=== PATIENT | female | born 1960 | race Two or more races ===

== ENCOUNTER 2018-11-11 11:08 | Inpatient (IN) | payer MEDICAID ==
[~2018-11-11] VITALS: Ht 160 cm; Wt 78.5 kg
[2018-11-11 11:56] LABS: HEMATOCRIT 36.5 % (36.0-48.0); HEMOGLOBIN 12.6 g/dL (12.0-16.0); MEAN CORPUSCULAR VOLUME 95.8 fL (81.0-99.0); PLATELET 250 x1000/uL (130-400); RED BLOOD CELL COUNT 3.81 mill/uL (4.2-5.4); RED CELL DISTRIBUTION WIDTH 13.3 % (11.6-14.6)
[2018-11-11 12:02] LABS: CHLORIDE 107 mEq/L (98-107)
[2018-11-11] MEDS ORDERED: ASPI-1158 MT (12:10)
[2018-11-11] MEDS ORDERED: CARV6.2548 MT (12:10)
[2018-11-11] MEDS ORDERED: LEVO112T7 MT (12:10)
[2018-11-11] MEDS ORDERED: CHOL200074 MT (12:10)
[2018-11-11] MEDS ORDERED: LIRA0.6P SQ (12:10)
[2018-11-11] MEDS ORDERED: NAPR-679 PO (12:10)
[2018-11-11] MEDS ORDERED: FISH1CAP65 MT (12:10)
[2018-11-11] MEDS ORDERED: SACU1TAB7 MT (12:10)
[2018-11-11] MEDS ORDERED: VENL-179 MT (12:10)
[2018-11-11] MEDS ORDERED: ATOR10TA69 PO (12:10)
[2018-11-11 12:22] LABS: PARTIAL THROMBOPLASTIN TIME 27.5 sec (23.4-31.0); PROTHROMBIN TIME 10.1 sec (9.6-11.0)
[2018-11-11] MEDS ORDERED: LIDOCAINE HCL 1% 20ML VIAL (Pyxis) INJ ONE (13:13)
[2018-11-11] MEDS ORDERED: IOHEXOL-300 100 ML BOTTLE ONE (13:13)
[2018-11-11] MEDS ORDERED: MIDAZOLAM HCL 2 MG/2 ML VIAL ONE (13:14)
[2018-11-11] MEDS ORDERED: GENTAMICIN SULF 40MG/ML 2ML VIAL ONE (13:14)
[2018-11-11] MEDS ORDERED: FENTANYL CITRATE/PF 50MCG/ML 2ML VIAL ONE (13:14)
[2018-11-11] MEDS ORDERED: GENTAMICIN/NS IRRIGATION 500 ML IR ONE (13:15)
[2018-11-11] MEDS ORDERED: SODIUM CHLORIDE 0.9% 10ML VIAL ONE (13:28)
[2018-11-11] MEDS ORDERED: CEFAZOLIN SODIUM 1000MG/VIAL ONE (13:28)
[2018-11-11] MEDS ORDERED: PROPOFOL 200MG/20ML VIAL IV ONE (13:40)
[2018-11-11] MEDS ORDERED: HYDROCODONE/ACETAMINOPHEN 5/325MG TABLET PO PRN (15:45)
[2018-11-11 18:33] VITALS: BP 112/84
[2018-11-11] MEDS ORDERED: HYDROMORPHONE HCL/PF 2MG/ML CPJ IV PRN (19:00)
[2018-11-11 20:00] VITALS: BP 115/60
[2018-11-11] MEDS ORDERED: ATORVASTATIN CALCIUM 10MG TABLET PO SCH (21:00)
[2018-11-11] MEDS: VENLAFAXINE HCL 37.5MG SR CAPSULE 24HR PO SCH (21:52)
[2018-11-11] MEDS: CARVEDILOL 6.25 MG TABLET PO SCH (21:57)
[2018-11-11 22:00] VITALS: BP 112/69
[2018-11-11] MEDS: CEFAZOLIN 1000MG PREMIX 50 ML IV SCH (22:06)
[2018-11-11 23:04] LABS: PARTIAL THROMBOPLASTIN TIME 27.5 sec (23.4-31.0); PROTHROMBIN TIME 10.5 sec (9.6-11.0)
[2018-11-12] VITALS (7 sets, daily range): BP systolic 94–112; BP diastolic 58–65
[2018-11-12] MEDS: CEFAZOLIN 1000MG PREMIX 50 ML IV SCH (05:55)
[2018-11-12 06:30] LABS: CHLORIDE 107 mEq/L (98-107)
[2018-11-12 06:36] LABS: BASOPHILS % 0.2 % (0.0-2.0); EOSINOPHILS % 1.7 % (0.0-5.0); HEMATOCRIT. 33.9 % (36.0-48.0); HEMOGLOBIN. 11.8 g/dL (12.0-16.0); LYMPHOCYTES % 30.2 % (20.0-50.0); MEAN CORPUSCULAR HEMOGLOBIN 33.3 pg (28.0-32.0); MEAN CORPUSCULAR VOLUME 95.5 fL (81.0-99.0); MEAN PLATELET VOLUME 8.9 fl (7.4-10.4); NEUTROPHILS % 58.9 % (40.0-76.0); PLATELET 207 x1000/uL (130-400); RED BLOOD CELL COUNT 3.55 mill/uL (4.2-5.4); RED CELL DISTRIBUTION WIDTH 13.2 % (11.6-14.6)
[2018-11-12] MEDS: VENLAFAXINE HCL 37.5MG SR CAPSULE 24HR PO SCH (08:21)
[2018-11-12] MEDS: CARVEDILOL 6.25 MG TABLET PO SCH (08:22)
[2018-11-12] MEDS ORDERED: LEVOTHYROXINE SODIUM 112MCG TABLET PO SCH (09:00)
[2018-11-12] MEDS ORDERED: ASPIRIN 81MG TABLET PO SCH (09:00)
[2018-11-12] MEDS ORDERED: NAPROXEN 375MG TABLET PO SCH (09:00)
== END 2018-11-12 13:37 | disposition home or self-care (01) | DRG 161 ==
LOC: CCL 11:08 → 3WST 11:09
PROVIDERS: ADMIT Internal Medicine Clinical Cardiac Electrophysiology; ATTEND Internal Medicine Clinical Cardiac Electrophysiology
PROC: 0JH608Z Insertion of Defibrillator Generator into Chest Subcutaneous Tissue and Fascia, Open Approach (ICD-10-PCS; principal; 2018-11-11)
PROC: 02HK3KZ Insertion of Defibrillator Lead into Right Ventricle, Percutaneous Approach (ICD-10-PCS; 2018-11-11)
PROC: 4A023N6 Measurement of Cardiac Sampling and Pressure, Right Heart, Percutaneous Approach (ICD-10-PCS; 2018-11-11)
DX: I42.0 Dilated cardiomyopathy (principal); I11.0 Hypertensive heart disease with heart failure; I50.9 Heart failure, unspecified; E03.9 Hypothyroidism, unspecified; E11.9 Type 2 diabetes mellitus without complications; I43 Cardiomyopathy in diseases classified elsewhere; E78.00 Pure hypercholesterolemia, unspecified; Z79.84 Long term (current) use of oral hypoglycemic drugs; Z82.49 Family history of ischemic heart disease and other diseases of the circulatory system; Z79.899 Other long term (current) drug therapy
CPT/HCPCS: 33249; 36415; 71045; 75820; 80048; 85027; 93005; 93451; 93641; A4565; C1722; C1892; C1893; C1899; J0690; J1580; J1644; J2250; J2704; J3010; J3490; J7050; Q9967